=== PATIENT | female | born 1990 | race Caucasian/White ===

== ENCOUNTER 2017-03-12 09:38 | Emergency (ER) | payer MEDICAID, OTHER ==
[~2017-03-12] VITALS: Ht 160 cm; Wt 66.0 kg
[~2017-03-12 09:38] MED LIST: CLONAZEPAM PO; HYDR2TAB4 PO; LORA2TAB95 PO; ONDA4TAB51 PO; SERT20OR PO
[2017-03-12] MEDS ORDERED: ONDANSETRON 4MG ODT PO ONE (10:15)
[2017-03-12] MEDS ORDERED: LORAZEPAM 1MG TABLET PO ONE ×2 (10:15→11:15)
[2017-03-12 11:39] VITALS: BP 131/79
== END 2017-03-12 11:41 | disposition home or self-care (01) ==
LOC: ER 09:44
DX: F41.0 Panic disorder [episodic paroxysmal anxiety] (principal); F12.10 Cannabis abuse, uncomplicated; Z88.0 Allergy status to penicillin
CPT/HCPCS: 81025; 99284; Q0162